=== PATIENT | female | born 1970 | race Asian ===

== ENCOUNTER 2017-02-09 07:00 | Emergency (ER) | payer OTHER ==
[2017-02-09 07:05] VITALS: TEMP 97.7; BMI 25.6
[2017-02-09] MEDS ORDERED: SODIUM CHLORIDE 0.9% 1000 ML INFUS.BAG IV ONE ×2 (07:19→10:15)
[2017-02-09] MEDS ORDERED: ONDANSETRON 4 MG/2 ML VIAL IVPUSH ONE (07:19)
[2017-02-09] MEDS ORDERED: ONDANSETRON 4 MG/2 ML VIAL ONE (07:25)
[2017-02-09 07:32] LABS: PH,URINE 5.5 (4.5-8); URINE APPEARANCE Clear; URINE BILIRUBIN 1+ (NEGATIVE); URINE BLOOD Trace-lysed (NEGATIVE); URINE COLOR YELLOW; URINE GLUCOSE (UA) Negative (NEGATIVE); URINE KETONE Trace (NEGATIVE); URINE LEUK ESTERASE Trace (NEGATIVE); URINE NITRITE Negative (NEGATIVE); URINE PROTEIN 1+ (NEGATIVE); URINE UROBILINOGEN 0.2 E.U/dl (0.2-1.0)
--- NOTE | 2017-02-09 07:41 | PDOC ---
History of Present Illness - General Chief Complaint: Pain, Acute Stated Complaint: LOWER ABD PAIN Time Seen by Provider: 02/09/17 07:07 History Source: Patient Exam Limitations: No Limitations - History of Present Illness Travel History: No Initial Comments: 02/09/17 07:31 47 yo F no pmhx here with c/o abd pain, n/v/d. started yesterday around noon. had intractable n/v. threw up several times, all nonbloody nonbilious. then today with loose watery stool. no recent travel. did recently take antiobiotics of cipro for UTI one week ago. . no known food exposure or sick contacts . today now still had nausea, and diarreha, vomiting has seem to stop. no sick contacts. surgical history : cholecystectomy many years ago 02/09/17 10:05 Timing/Duration: reports: constant Quality: reports: moderate Abdominal Pain Onset Location: reports: generalized abdomen Pain Radiation: reports: no radiation Activities at Onset: reports: none Aggravating Factors: improves with: None Alleviating Factors: improves with: None Past History - Past Medical History Allergies/Adverse Reactions: Allergies Allergy/AdvReac Type Severity Reaction Status Date / Time Sulfa (Sulfonamide Allergy Rash Verified 02/09/17 07:02 Antibiotics) Home Medications: Ambulatory Orders Levothyroxine [Synthroid -] 100 mcg PO DAILY 10/06/13 Cetirizine HCl [Zyrtec -] 10 mg PO DAILY 02/09/17 Seizures: Yes (GRAVES) Thyroid Disease: Yes - Surgical History Cholecystectomy: Yes - Psycho/Social/Smoking Cessation Hx Anxiety: No Suicidal Ideation: No Smoking History: Never smoked Hx Alcohol Use: No Drug/Substance Use Hx: No Substance Use Type: None Review of Systems - Review of Systems Constitutional: No: Chills, Diaphoresis, Fever HEENTM: No: Blurred Vision Respiratory: No: Orthopnea, Shortness of Breath Cardiac (ROS): No: Chest Pain, Irregular Heart Rate ABD/GI: Yes: Diarrhea, Nausea, Vomiting, Abdominal cramping : No: Burning, Dysuria Musculoskeletal: No: Back Pain, Gout, Joint Pain All Other Systems: Reviewed and Negative *Physical Exam - Vital Signs Last Vital Signs Temp Pulse Resp BP Pulse Ox 97.7 F 87 18 139/100 100 02/09/17 07:01 02/09/17 07:01 02/09/17 07:01 02/09/17 07:30 02/09/17 07:01 - Physical Exam General Appearance: Yes: Appropriately Dressed HEENT: positive: EOMI, Normal ENT Inspection, Normal Voice Neck: positive: Trachea midline, Decreased range of motion Respiratory/Chest: positive: Lungs Clear, Normal Breath Sounds Cardiovascular: positive: Regular Rhythm, Regular Rate, S1, S2 Vascular Pulses: Dorsalis-Pedis (R): 2+, Doralis-Pedis (L): 2+ Gastrointestinal/Abdominal: positive: Normal Bowel Sounds, Flat, Soft. negative : Tender, Organomegaly, Guarding, Rebound, Tenderness Musculoskeletal: positive: Normal Inspection. negative: CVA Tenderness Extremity: positive: Normal Capillary Refill Integumentary: positive: Normal Color, Dry, Warm Neurologic: positive: Fully Oriented, Alert, Normal Mood/Affect Procedures - Bedside Ultrasound Other: renal US: no hydronephrosis bilaterally. nondistended bladder.nml kidneys ED Treatment Course - LABORATORY CBC & Chemistry Diagram: 02/09/17 07:20 02/09/17 07:20 - ADDITIONAL ORDERS Additional order review: Laboratory Results 02/09/17 07:12 Urine HCG, Qual Negative - Medications Given in the ED: ED Medications Discontinued Medications Generic Name Dose Route Start Last Admin Trade Name Kunal PRN Reason Stop Dose Admin Ondansetron HCl 4 mg 02/09/17 07:19 02/09/17 07:30 Zofran Injection IVPUSH 02/09/17 07:20 4 mg ONCE ONE Administration Sodium Chloride 1,000 ml 02/09/17 07:19 02/09/17 07:30 Normal Saline - IV 02/09/17 07:20 1,000 ml ONCE ONE Administration Medical Decision Making - Medical Decision Making 02/09/17 07:43 47 yo F with n/v/d x 24 hours, seems to be improving. recently on cipro. low risk for c diff. , no travel. all nonbloody. exam abd nontender/ on exam awake alert lungs clear heart RRR no mr/g. abd soft NT ND. ext wwp mucous membranes moist. skin warm and dry no rash. plan: hydrat. r/o pancreatitis, gastritis, gastroenteritis, electrolyte abnormality. plan ivf, antiemetics antacid. labs reassess. will send stool studies if pt able to stool in ed. 02/09/17 09:35 pt with h;o renal colic, had flank pain day prior, now on opposite side. bedside renal ultrasound performed, no hydronephrosis. bladder non-distended. labs unremarkable. pt no longer having urinary sxs. no dysuria, no fever, no urgency. 02/09/17 10:06 02/09/17 10:24 no bm while in ED. c diff unlikely. warning signs given to return. tolerating PO. feels better. labs normal. dc home. *DC/Admit/Observation/Transfer Diagnosis at time of Disposition: Gastroenteritis - Discharge Dispostion Disposition: HOME Condition at time of disposition: Improved Admit: No - Referrals Referrals: Phyllis Thakkar [Primary Care Provider] - - Patient Instructions Printed Discharge Instructions: Viral Gastroenteritis Additional Instructions: bland foods, drink plenty of liquids for 24 hours. return for worsening abdominal pain, high fevers, bloody stools or any concerns. follow up with your regular doctor. call to schedule. you labs are normal today. your ultrasound of your kidneys performed at bedside was normal also. you urine demonstrates you were dehydrated. return for any concerns.
[2017-02-09 07:51] LABS: BASOPHIL 0.6 % (0-2.0); EOSINOPHIL 0.9 % (0-4.5); MCH 31.4 pg (25.7-33.7); MCHC 34.7 g/dl (32.0-36.0); MEAN CELL VOLUME 90.3 fl (80-96); MEAN PLT VOLUME 9.6 fl (7.5-11.1); NEUTROPHILS 72.3 % (42.8-82.8); PLATELET COUNT 272 K/MM3 (134-434); RDW 11.5 % (11.6-15.6); WHITE BLOOD COUNT 10.7 K/mm3 (4.0-10.8)
[2017-02-09 07:58] LABS: ALBUMIN 3.9 g/dl (3.5-5.0); ALK PHOS 55 U/L (32-92); ANION GAP 8 (8-16); BILIRUBIN,TOTAL 1.2 mg/dl (0.2-1.0); CALCIUM 9.5 mg/dl (8.4-10.2); CO2 24 mmol/L (22-28); CREATININE 0.5 mg/dl (0.6-1.3); GLUCOSE,RANDOM 112 mg/dl (74-106); SGOT/AST 15 U/L (10-42); SGPT/ALT 15 U/L (10-40)
[2017-02-09 08:26] VITALS: BP 126/80; PULSE 70
[2017-02-09] MEDS ORDERED: MAG HYDROX/AL HYDROX/SIMETH 30 ML UNIT-DOSE CUP ONE (09:13)
[2017-02-09] MEDS ORDERED: FAMOTIDINE 20 MG TABLET ONE (09:13)
[2017-02-09] MEDS ORDERED: FAMOTIDINE 20 MG/50 ML IVPB 50 ML IVPB ONE ×2 (09:15→09:19)
[2017-02-09] MEDS ORDERED: MAG HYDROX/AL HYDROX/SIMETH 30 ML UNIT-DOSE CUP PO ONE (09:19)
[2017-02-09] MEDS ORDERED: METOCLOPRAMIDE HCL INJECTION 10 MG/2 ML VIAL IVPB ONE (09:19)
[2017-02-09] MEDS ORDERED: SODIUM CHLORIDE 0.9% 1000 ML INFUS.BAG IV PRN (09:20)
[2017-02-09 11:37] LABS: URINE MUCUS 1+
== END 2017-02-09 10:41 | disposition home or self-care (01) ==
LOC: FER 07:00
PROC: 3E033GC Introduction of Other Therapeutic Substance into Peripheral Vein, Percutaneous Approach (ICD-10-PCS; principal; 2017-02-09)
PROC: 3E0337Z Introduction of Electrolytic and Water Balance Substance into Peripheral Vein, Percutaneous Approach (ICD-10-PCS; 2017-02-09)
DX: K52.9 Noninfective gastroenteritis and colitis, unspecified (principal); Z87.442 Personal history of urinary calculi; E05.00 Thyrotoxicosis with diffuse goiter without thyrotoxic crisis or storm
CPT/HCPCS: 36415; 80053; 81003; 81015; 83690; 84703; 85025; 99283-25